=== PATIENT | male | born 1985 | race Caucasian/White ===

== ENCOUNTER 2021-02-26 09:08 | Emergency (ER) | payer SELFPAY ==
[~2021-02-26] VITALS: Ht 162.6 cm; Wt 68.2 kg
[2021-02-26 09:19] VITALS: Ht 162.6 cm; Wt 68.2 kg
[2021-02-26] MEDS ORDERED: DILANTIN100 MG PO (09:35)
[2021-02-26 09:52] LABS: BASOPHILS 0.5 % (0-2); EOSINOPHILS 9.4 % (0-7); HEMOGLOBIN 13.7 g/dL (13.5-17.5); IMMATURE GRANULOCYTES 0.7 % (0-5); LYMPHOCYTE ABS# 1.43 10x3/uL (1.32-3.57); LYMPHOCYTES 34.4 % (15-50); MCH 32.9 pg (26.0-34.0); MCHC 33.4 g/dL (31.0-37.0); MCV 98.6 fL (80.0-100.0); MEAN PLATELET VOLUME 10.2 fL (7.4-10.4); MONOCYTES 13.7 % (2-11); NEUTROPHIL ABS# 1.72 10x3/uL (1.78-5.38); NEUTROPHILS 41.3 % (40-80); PLATELET COUNT 196 10x3/uL (130-400); RBC 4.16 10x6/uL (4.20-6.10); RDW 13.7 % (11.5-14.5); WBC 4.2 10x3/uL (4.8-10.8)
[2021-02-26 09:56] LABS: CALC OSMOLALITY 271 mosm/kg (275-300); CHLORIDE - SERUM 101 mmol/L (98-107); GLUCOSE 91 mg/dL (74-106); SODIUM 136 mmol/L (136-145); UREA NITROGEN 12 mg/dL (7-18); eGFR NON AFRICAN AMERICAN 90 mL/min (90-120)
[2021-02-26 10:02] LABS: ALBUMIN 3.5 g/dL (3.4-5.0); ALKALINE PHOSPHATASE 69 U/L (30-120); ALT (SGPT) 167 U/L (10-68); BILIRUBIN - TOTAL 0.36 mg/dL (0.2-1.3); PROTEIN - SERUM 7.3 g/dL (6.4-8.2)
[2021-02-26 10:13] VITALS: BP 111/72
== END 2021-02-26 10:22 | disposition home or self-care (01) ==
LOC: D.ER 09:08
PROVIDERS: Emergency Medicine
DX: R56.9 Unspecified convulsions (principal)